=== PATIENT | female | born 1990 ===

== ENCOUNTER 2019-09-20 03:35 | Emergency (ER) | payer SELFPAY ==
--- NOTE | 2019-09-20 04:03 | Emergency Department Report ---
<IONA MARTINES - Last Filed: 09/20/19 05:35> ED Psych HPI - General Stated Complaint: SUICIDAL/MH Time Seen by Provider: 09/20/19 03:44 Source: patient - History of Present Illness Initial Comments: 29-year-old female with history of anxiety and depression presents to the ED feeling depressed and suicidal. Patient states a lot is been going on her life, however she is not specific. Patient reports she has been off of her psychiatric medications for approximately 6 months. Patient called 911 jona seeking help. MD Complaint: suicidal ideation, feels depressed -: This evening Associated Psychiatric Symptoms: depression, suicidal ideation History of same: Yes Quality: constant Improves With: medication Worsens With: none Context: not taking psychiatric, significant life stressor Associated Symptoms: denies other symptoms Treatments Prior to Arrival: none If Self Harm: admits thoughts of - Related Data Allergies Allergy/AdvReac Type Severity Reaction Status Date / Time No Known Allergies Allergy Unverified 09/20/19 05:01 ED Review of Systems Comment: All other systems reviewed and negative Psychiatric: depression, suicidal thoughts. denies: auditory hallucinations, visual hallucinations, homicidal thoughts ED Physical Exam - General General appearance: alert, in no apparent distress, appears intoxicated - Head Head exam: Present: atraumatic, normocephalic - Eye Eye exam: Present: normal appearance, EOMI - ENT ENT exam: Present: mucous membranes moist - Neck Neck exam: Present: normal inspection - Respiratory Respiratory exam: Present: normal lung sounds bilaterally. Absent: respiratory distress - Cardiovascular Cardiovascular Exam: Present: regular rate, normal rhythm - GI/Abdominal GI/Abdominal exam: Present: soft. Absent: distended, tenderness - Extremities Exam Extremities exam: Present: normal inspection - Neurological Exam Neurological exam: Present: alert, oriented X3 - Psychiatric Psychiatric exam: Present: depressed - Skin Skin exam: Present: warm, dry, intact, normal color ED Medical Decision Making - Lab Data Result diagrams: 09/20/19 05:00 09/20/19 05:00 ED Disposition Clinical Impression: Depression, Suicidal ideation Disposition: [id number]/TX-65 PSY HOSP/PSY UNIT Condition: Stable <MANDA BRAVO - Last Filed: 09/21/19 16:48> ED Review of Systems ROS: Stated complaint: SUICIDAL/MH Other details as noted in HPI ED Course Vital Signs 09/20/19 09/20/19 09/20/19 03:53 08:04 12:52 Temperature 98.4 F 98.1 F 98.3 F Pulse Rate 78 119 H 102 H Respiratory 16 18 18 Rate Blood Pressure 148/98 Blood Pressure 111/82 106/83 [Left] O2 Sat by Pulse 100 96 99 Oximetry 09/20/19 09/20/19 09/20/19 16:05 20:05 20:15 Temperature 98.2 F 99.2 F Pulse Rate 88 109 H Respiratory 18 18 18 Rate Blood Pressure Blood Pressure 118/89 130/83 [Left] O2 Sat by Pulse 99 100 99 Oximetry 09/21/19 09/21/19 09/21/19 01:43 07:00 13:40 Temperature 99.1 F 98.3 F 98.4 F Pulse Rate 79 81 99 H Respiratory 16 18 18 Rate Blood Pressure Blood Pressure 121/85 123/87 126/87 [Left] O2 Sat by Pulse 99 99 99 Oximetry - Reevaluation(s) Reevaluation #1: 09/21/19 16:48 Patient been accepted to a [facility] ED Medical Decision Making - Lab Data Result diagrams: 09/20/19 05:00 09/20/19 05:00 Critical care attestation.: If time is entered above; I have spent that time in minutes in the direct care of this critically ill patient, excluding procedure time. ED Disposition Is pt being admited?: No Does the pt Need Aspirin: No Time of Disposition: 16:48
[2019-09-20 04:58] LABS: Bilirubin,Urine NEG (Negative); Blood,Urine NEG (Negative); Color,Urine Colorless (Yellow); Protein,Urine <15 mg/dL mg/dL (Negative); Urobilinogen,Urine < 2.0 mg/dL (<2.0); WBC,Urine < 1.0 /HPF (0.0-6.0)
[2019-09-20 05:07] LABS: Amphetamine Screen,Urine PRESUMPTIVE NEGATIVE; Benzodiazepines Screen,Urine PRESUMPTIVE NEGATIVE; Cannabinoid Screen,Urine PRESUMPTIVE NEGATIVE; Cocaine Screen,Urine PRESUMPTIVE NEGATIVE; Methadone Screen,Urine PRESUMPTIVE NEGATIVE; Opiate Screen,Urine PRESUMPTIVE NEGATIVE
[2019-09-20 05:11] LABS: Basophils # (Auto) 0.1 K/mm3 (0.0-0.1); Basophils % (Auto) 0.9 % (0.0-1.8); Eosinophils # (Auto) 0.1 K/mm3 (0.0-0.4); Eosinophils % (Auto) 0.9 % (0.0-4.3); Hematocrit 39.8 % (30.3-42.9); Hemoglobin 13.6 gm/dl (10.1-14.3); Lymphocytes # (Auto) 1.7 K/mm3 (1.2-5.4); Lymphocytes % (Auto) 29.2 % (13.4-35.0); Mean Corpuscular HGB Conc 34 % (30-34); Mean Corpuscular Volume 89 fl (79-97); Monocytes # (Auto) 0.4 K/mm3 (0.0-0.8); Monocytes % (Auto) 6.5 % (0.0-7.3); Platelet Count 264 K/mm3 (140-440); Red Blood Count 4.48 M/mm3 (3.65-5.03); Red Cell Distribution Width 14.5 % (13.2-15.2)
[2019-09-20 05:29] LABS: BUN/Creatinine Ratio 16; Blood Urea Nitrogen 8 mg/dL (7-17); Hemolysis Index 5
[2019-09-21] MEDS ORDERED: INSULIN REGULAR, HUMAN 100 UNITS/1 ML ONE (08:55)
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
[2019-09-21 13:42] VITALS: BP 126/87
[2019-09-21] MEDS ORDERED: traZODone 50 MG TAB PO SCH (22:00)
[2019-09-22] MEDS ORDERED: FLUoxetine 10 MG TAB PO SCH (10:00)
== END 2019-09-21 17:56 ==
LOC: EEVIPCON 03:35 → ED 03:35
DX: F32.9 Major depressive disorder, single episode, unspecified (principal); R45.851 Suicidal ideations
CPT/HCPCS: 36415; 80048; 80307; 80320; 81001; 84703; 85025; 93005; 93010; G0480; J1815